=== PATIENT | male | born 1970 | race African-American/Black ===

== ENCOUNTER 2025-01-08 04:56 | Inpatient (IN) | payer SELFPAY ==
[~2025-01-08] VITALS: Ht 177.8 cm; Wt 74.8 kg
[2025-01-08] MEDS: SODIUM CHLORIDE 0.9% 1,000 ML IV ONE (05:54)
[2025-01-08] MEDS: ONDANSETRON HCL 4MG/2ML INJ IV STA (05:54)
[2025-01-08 06:27] LABS: CHLORIDE 90 mEq/L (98-107); POTASSIUM 4.6 mEq/L (3.5-5.1); SODIUM 123 mEq/L (136-145)
[2025-01-08 06:28] LABS: CALCIUM 8.3 mg/dL (8.7-10.4); CARBON DIOXIDE 16 mEq/L (21-32)
[2025-01-08 06:33] LABS: GLUCOSE 126 mg/dL (70-105); LACTIC ACID 3.3 mmol/L (0.4-2.0)
[2025-01-08 06:34] LABS: BASOPHILS % 0.3 % (0.0-2.0); DIFFERENTIAL COMMENT 0; EOSINOPHILS % 0.3 % (0.0-5.0); HEMATOCRIT. 41.2 % (42.0-52.0); HEMOGLOBIN. 14.1 g/dL (14.0-18.0); LYMPHOCYTES % 9.9 % (20.0-50.0); MEAN CORPUSCULAR HEMOGLOBIN 34.5 pg (28.0-32.0); MEAN CORPUSCULAR HGB CONC 34.1 g/dL (31.0-37.0); MEAN PLATELET VOLUME 10.3 fl (7.4-10.4); MONOCYTES % 5.4 % (2.0-8.0); NEUTROPHILS % 84.1 % (40.0-76.0); PLATELET 83 x1000/uL (130-400); RED BLOOD CELL COUNT 4.08 mill/uL (4.7-6.1); RED CELL DISTRIBUTION WIDTH 13.8 % (11.6-14.6); TROPONIN I HIGH SENSITIVITY 15 ng/L (3.0-53); WHITE BLOOD COUNT 13.8 x1000/uL (4.5-11.0)
[2025-01-08 06:35] LABS: ALANINE AMINOTRANSFERASE 57 IU/L (10-49); ALBUMIN 3.6 g/dL (3.2-4.8); ASPARTATE AMINOTRANSFERASE 260 IU/L (<34)
[2025-01-08 06:36] LABS: BILIRUBIN TOTAL 1.6 mg/dL (0.1-1.0); PROTEIN TOTAL 7.3 g/dL (6.0-8.3)
[2025-01-08 06:40] LABS: UREA NITROGEN BLOOD 71 mg/dL (9-23)
[2025-01-08 06:45] LABS: ETHANOL BLOOD < 10 mg/dL (<10)
[2025-01-08] MEDS ORDERED: AZITHROMYCIN 500MG/250ML 250 ML IV SCH (07:00)
[2025-01-08 07:13] LABS: CLARITY URINE TURBID (CLEAR); COLOR URINE DARK YELLOW (YELLOW); GLUCOSE URINE NEGATIVE (NEGATIVE); KETONES URINE TRACE (NEGATIVE); LEUKOCYTE ESTERASE URINE 3+ (NEGATIVE); NITRITE URINE NEGATIVE (NEGATIVE); OCCULT BLOOD URINE 3+ (NEGATIVE); PROTEIN URINE 3+ (NEGATIVE); SPECIFIC GRAVITY URINE 1.017 (1.005-1.030)
[2025-01-08 07:35] LABS: *AMPHETAMINES SCREEN URINE NEGATIVE (NEGATIVE)
[2025-01-08 07:36] LABS: *BARBITURATES SCREEN URINE NEGATIVE (NEGATIVE); *BENZODIAZEPINES SCREEN URINE NEGATIVE (NEGATIVE); *COCAINE SCREEN URINE NEGATIVE (NEGATIVE); CANNABINOID URINE SCREEN NEGATIVE (NEGATIVE); ECSTASY MDMA SCREEN URINE NEGATIVE (NEGATIVE); METHADONE URINE SCREEN NEGATIVE (NEGATIVE); OPIATES URINE SCREEN NEGATIVE (NEGATIVE); PHENCYCLIDINE URINE SCREEN NEGATIVE (NEGATIVE)
[2025-01-08] MEDS: PANTOPRAZOLE SODIUM 40 MG/VIAL IV ONE (07:40)
[2025-01-08 07:47] LABS: BACTERIA URINE 4+; RBC URINE TNTC /hpf (0-2); SQUAMOUS EPITHELIAL CELL URINE NONE SEEN /lpf (RARE/1+); WBC URINE TNTC /hpf (0-2)
[2025-01-08] MEDS: LORAZEPAM 2MG/ML INJ IV ONE (07:47)
[2025-01-08] MEDS: CEFTRIAXONE 1GM/50ML 50 ML IV ONE (07:49)
[2025-01-08 09:16] LABS: D-DIMER 9.32 mg/L FEU (<0.50); INR 1.1; PROTHROMBIN TIME 12.1 sec (9.6-11.0)
[2025-01-08 09:18] LABS: BG BASE EXCESS -8.5 mmol/L (-2.0-3.0); BG CARBOXYHEMOGLOBIN 0.6 % (0.5-1.5); BG DEOXYHEMOGLOBIN 5.5 % (0.0-5.0); BG FRACTION INSPIRED OXYGEN 44; BG HCO3 ACT 14.9 mmol/L (21.0-28.0); BG METHEMOGLOBIN 0.2 % (0.5-1.5); BG OXYGEN SATURATION 94.5 % (94.0-98.0); BG OXYHEMOGLOBIN 93.7 % (94.0-98.0); BG PCO2 25.8 mmHg (35.0-48.0); BG PH 7.378 (7.350-7.450); BG PO2 77.1 mmHg (83.0-108.0); BG SAMPLE SITE LEFT BRACHIAL; BG TOTAL HEMOGLOBIN 13.7 g/dL (13.5-17.5); BG VENT MODE NASAL CANNULA
[2025-01-08] MEDS: SODIUM BICARBONATE 8.4% 50MEQ/50ML SYR IV ONE (11:00)
[2025-01-08] MEDS: IOHEXOL-350 100 ML BOTTLE ONE (11:36)
[2025-01-08] MEDS: PANTOPRAZOLE 80 MG in SODIUM CHLORIDE 0.9% 100 ML IV SCH (11:58)
[2025-01-08] MEDS: AZITHROMYCIN 500MG/250ML 250 ML IV SCH (12:08)
[2025-01-08] MEDS ORDERED: ONDANSETRON HCL 4MG/2ML INJ IV PRN (12:15)
[2025-01-08] MEDS ORDERED: CLONIDINE 0.1MG TABLET PO PRN (12:15)
[2025-01-08] MEDS ORDERED: ACETAMINOPHEN 325MG TABLET PO PRN ×2 (12:15)
[2025-01-08] MEDS ORDERED: DOCUSATE SODIUM 100MG CAPSULE PO PRN (12:15)
[2025-01-08] MEDS ORDERED: IPRATROPIUM/ALBUTEROL 0.5-3(2.5)MG/3ML NEB HHN PRN (12:15)
[2025-01-08] MEDS: FUROSEMIDE 40MG/4ML VIAL IV SCH (13:40)
[2025-01-08] MEDS: DEXT 5%/0.45% NACL 1000ML 1,000 ML IV SCH (13:40)
[2025-01-08] MEDS: FOLIC ACID 1 MG, THIAMINE HCL 100 MG, MVI, ADULT NO.1 10 ML in SODIUM CHLORIDE 0.9% 1,0... IV ONE (14:57)
[2025-01-08 15:42] LABS: POTASSIUM 3.7 mEq/L (3.5-5.1)
[2025-01-08 15:44] LABS: CALCIUM 7.8 mg/dL (8.7-10.4)
[2025-01-08 15:46] LABS: CREATINE KINASE 528 IU/L (46-171)
[2025-01-08 15:48] LABS: CREATININE 4.6 mg/dL (0.6-1.3)
[2025-01-08 22:00] VITALS: BP 92/69; PULSE 122; RESP 53; TEMP 37.1; O2SAT 97
[2025-01-08] MEDS: METOPROLOL TARTRATE 5MG/5ML VIAL IV NR (22:09)
[2025-01-08] MEDS: DEXT 5%/LACTATED RINGERS 1,000 ML IV SCH (22:25)
[2025-01-08] MEDS: VANCOMYCIN 1.5GM/250ML 250 ML IV NR (23:24)
[2025-01-08 23:28] LABS: BG BASE EXCESS -8.4 mmol/L (-2.0-3.0); BG CARBOXYHEMOGLOBIN 0.4 % (0.5-1.5); BG DEOXYHEMOGLOBIN 6.5 % (0.0-5.0); BG FRACTION INSPIRED OXYGEN 44; BG HCO3 ACT 15.2 mmol/L (21.0-28.0); BG METHEMOGLOBIN 0.3 % (0.5-1.5); BG OXYGEN SATURATION 93.5 % (94.0-98.0); BG OXYHEMOGLOBIN 92.8 % (94.0-98.0); BG PCO2 26.6 mmHg (35.0-48.0); BG PH 7.374 (7.350-7.450); BG PO2 74.1 mmHg (83.0-108.0); BG SAMPLE SITE RIGHT BRACHIAL; BG VENT MODE NASAL CANNULA
[2025-01-09] VITALS (13 sets, daily range): BP systolic 82–142; BP diastolic 61–89; PULSE 80–127; RESP 33–66; TEMP 36.3–38.7; O2SAT 91–99
[2025-01-09 01:16] LABS: HEMATOCRIT 37.5 % (42.0-52.0)
[2025-01-09 01:25] LABS: CHLORIDE 97 mEq/L (98-107); POTASSIUM 4.1 mEq/L (3.5-5.1); SODIUM 130 mEq/L (136-145)
[2025-01-09 01:26] LABS: CALCIUM 7.6 mg/dL (8.7-10.4); CARBON DIOXIDE 19 mEq/L (21-32)
[2025-01-09 01:31] LABS: CREATININE 4.3 mg/dL (0.6-1.3); GLUCOSE 126 mg/dL (70-105); UREA NITROGEN BLOOD 80 mg/dL (9-23)
[2025-01-09 01:33] LABS: ALANINE AMINOTRANSFERASE 50 IU/L (10-49); ALBUMIN 3.1 g/dL (3.2-4.8); ASPARTATE AMINOTRANSFERASE 223 IU/L (<34); CREATINE KINASE 1058 IU/L (46-171)
[2025-01-09 01:34] LABS: BILIRUBIN TOTAL 1.7 mg/dL (0.1-1.0)
[2025-01-09] MEDS: ACETAMINOPHEN 1000MG/100ML 100 ML IV NR (04:43)
[2025-01-09 07:31] LABS: CHLORIDE 101 mEq/L (98-107); POTASSIUM 3.3 mEq/L (3.5-5.1); SODIUM 132 mEq/L (136-145)
[2025-01-09 07:32] LABS: CALCIUM 7.4 mg/dL (8.7-10.4); CARBON DIOXIDE 19 mEq/L (21-32)
[2025-01-09 07:37] LABS: CREATININE 4.3 mg/dL (0.6-1.3); GLUCOSE 182 mg/dL (70-105); TRIGLYCERIDE 640 mg/dL (0-150); UREA NITROGEN BLOOD 88 mg/dL (9-23)
[2025-01-09 07:38] LABS: HEMOGLOBIN. 11.2 g/dL (14.0-18.0); LDL CHOLESTEROL 19 mg/dL (5-100); MEAN CORPUSCULAR HGB CONC 33.8 g/dL (31.0-37.0); MEAN CORPUSCULAR VOLUME 97.8 fL (80.0-94.0); MEAN PLATELET VOLUME 8.7 fl (7.4-10.4); PLATELET 68 x1000/uL (130-400); RED BLOOD CELL COUNT 3.38 mill/uL (4.7-6.1); RED CELL DISTRIBUTION WIDTH 13.6 % (11.6-14.6); WHITE BLOOD COUNT 12.4 x1000/uL (4.5-11.0)
[2025-01-09 07:39] LABS: CHOLESTEROL 163 mg/dL (<200); HDL CHOLESTEROL < 20 mg/dL (>55)
[2025-01-09 07:41] LABS: T4 FREE 0.89 ng/dL (0.89-1.76); THYROID STIMULATING HORMONE 3.14 uIU/mL (0.55-4.78)
[2025-01-09] MEDS ORDERED: DEXTROSE 50% WATER 50ML SYRINGE IV PRN (08:00)
[2025-01-09] MEDS: BLOOD SUGAR DIAGNOSTIC STRIP TEST SCH (08:00)
[2025-01-09] MEDS ORDERED: CEFTRIAXONE 1GM/50ML 50 ML IV SCH (08:00)
[2025-01-09] MEDS: INSULIN LISPRO 100 UNITS/ML SUBCUT SCH (08:00)
[2025-01-09 08:03] LABS: DIFFERENTIAL COMMENT 1
[2025-01-09] MEDS: DEXT 5%/LACTATED RINGERS 1,000 ML IV SCH (08:15)
[2025-01-09] MEDS: PIPERACILLIN/TAZO 3.375G/50ML 50 ML IV SCH (09:20)
[2025-01-09] MEDS: PANTOPRAZOLE SODIUM 40 MG/VIAL IV SCH (09:21)
[2025-01-09] MEDS: [UNRECOGNIZED DRUG - REMARK] IV SCH (09:41)
[2025-01-09 09:47] LABS: T4 FREE 0.96 ng/dL (0.89-1.76)
[2025-01-09 09:55] LABS: LDL CHOLESTEROL 19 mg/dL (5-100); TRIGLYCERIDE 644 mg/dL (0-150)
[2025-01-09 09:57] LABS: CHOLESTEROL 162 mg/dL (<200); HDL CHOLESTEROL < 20 mg/dL (>55)
[2025-01-09 10:29] LABS: AMMONIA < 17 uMol/L (<32)
[2025-01-09] MEDS ORDERED: POTASSIUM CHLORIDE 20 MEQ in DEXT 5% WATER 100 ML IV SCH (11:15)
[2025-01-09 11:43] LABS: CREATININE URINE RANDOM 134.2 mg/dL
[2025-01-09] MEDS: METHYLPREDNISOLONE SOD SUCC 40MG/ML (ACT-O-VIAL) IV SCH (12:37)
[2025-01-09] MEDS: POTASSIUM CHLORIDE 20 MEQ in DEXT 5% WATER 100 ML IV SCH (12:38)
[2025-01-09 14:08] LABS: CREATINE KINASE MB FRACTION 4.1 ng/mL (0.5-3.6)
[2025-01-09 14:11] LABS: VITAMIN B12 SERUM 802 pg/mL (211-911)
[2025-01-09 14:12] LABS: FERRITIN > 1650 ng/mL (22-322)
[2025-01-09 14:24] LABS: HEPATITIS B SURFACE ANTIGEN NEGATIVE (Negative)
[2025-01-09 14:44] LABS: HEPATITIS A AB IGM NEGATIVE (Negative)
[2025-01-09 14:45] LABS: HEPATITIS B CORE AB IGM NEGATIVE (Negative); HEPATITIS C AB NON REACTIVE (Neg) (Negative)
[2025-01-09 14:46] LABS: PLATELET ESTIMATE DECREASED
[2025-01-09 23:49] LABS: IRON 19 ug/dL (65-175)
[2025-01-09 23:51] LABS: CREATINE KINASE 632 IU/L (46-171)
[2025-01-10] VITALS (13 sets, daily range): BP systolic 95–147; BP diastolic 74–91; PULSE 69–82; RESP 15–49; TEMP 36–36.3; O2SAT 90–100
[2025-01-10 00:10] LABS: TROPONIN I HIGH SENSITIVITY < 4 ng/L (3.0-53)
[2025-01-10 00:11] LABS: TOTAL IRON BINDING CAPACITY > 670 ug/dl (250-425)
[2025-01-10 08:10] LABS: CHLORIDE 104 mEq/L (98-107); POTASSIUM 3.5 mEq/L (3.5-5.1); SODIUM 137 mEq/L (136-145)
[2025-01-10 08:12] LABS: CARBON DIOXIDE 20 mEq/L (21-32)
[2025-01-10 08:13] LABS: CALCIUM 8.1 mg/dL (8.7-10.4)
[2025-01-10 08:17] LABS: CREATININE 3.3 mg/dL (0.6-1.3); GLUCOSE 265 mg/dL (70-105)
[2025-01-10 08:18] LABS: HEMATOCRIT. 35.3 % (42.0-52.0); HEMOGLOBIN. 11.7 g/dL (14.0-18.0); MEAN CORPUSCULAR HEMOGLOBIN 32.8 pg (28.0-32.0); MEAN CORPUSCULAR HGB CONC 33.2 g/dL (31.0-37.0); MEAN CORPUSCULAR VOLUME 98.8 fL (80.0-94.0); MEAN PLATELET VOLUME 9.2 fl (7.4-10.4); PLATELET 72 x1000/uL (130-400); RED BLOOD CELL COUNT 3.58 mill/uL (4.7-6.1); RED CELL DISTRIBUTION WIDTH 14.2 % (11.6-14.6); UREA NITROGEN BLOOD 82 mg/dL (9-23); WHITE BLOOD COUNT 12.8 x1000/uL (4.5-11.0)
[2025-01-10 08:19] LABS: ALANINE AMINOTRANSFERASE 49 IU/L (10-49); ALBUMIN 2.8 g/dL (3.2-4.8); ASPARTATE AMINOTRANSFERASE 185 IU/L (<34); BILIRUBIN DIRECT 0.8 mg/dL (<=3.0); CREATINE KINASE 512 IU/L (46-171); CREATINE KINASE MB FRACTION 2.5 ng/mL (0.5-3.6)
[2025-01-10 08:20] LABS: BILIRUBIN TOTAL 1.1 mg/dL (0.1-1.0); PROTEIN TOTAL 5.5 g/dL (6.0-8.3)
[2025-01-10] MEDS ORDERED: LORAZEPAM 2MG/ML INJ IV PRN (08:30)
[2025-01-10] MEDS ORDERED: LORAZEPAM 0.5MG TABLET PO PRN (08:30)
[2025-01-10 08:36] LABS: DIFFERENTIAL COMMENT 1
[2025-01-10 08:58] LABS: TROPONIN I HIGH SENSITIVITY < 4 ng/L (3.0-53)
[2025-01-10] MEDS: [UNRECOGNIZED DRUG - REMARK] IV SCH (09:57)
[2025-01-10] MEDS: VANCOMYCIN 1.25GM PMX (XELLIA) 250 ML IV NR (16:00)
[2025-01-10 16:48] LABS: PLATELET ESTIMATE DECREASED
[2025-01-10] MEDS: PIPERACILLIN/TAZO 3.375G/50ML 50 ML IV SCH (18:24)
[2025-01-10] MEDS: GUAIFENESIN 200MG/10ML SUGAR FREE UDC PO PRN (22:03)
[2025-01-10] MEDS: ACETYLCYSTEINE 200MG/ML 20% VIAL 4ML INH SCH (22:05)
[2025-01-10] MEDS: IPRATROPIUM/ALBUTEROL 0.5-3(2.5)MG/3ML NEB HHN SCH (22:05)
[2025-01-11] VITALS (16 sets, daily range): BP systolic 109–140; BP diastolic 72–84; PULSE 56–90; RESP 17–42; TEMP 36.3–36.9; O2SAT 94–100
[2025-01-11 06:56] LABS: HEMATOCRIT 34.9 % (42.0-52.0); HEMOGLOBIN 11.8 g/dL (14.0-18.0); MEAN CORPUSCULAR HEMOGLOBIN 33.7 pg (28.0-32.0); MEAN CORPUSCULAR HGB CONC 33.9 g/dL (31.0-37.0); MEAN CORPUSCULAR VOLUME 99.6 fL (80.0-94.0); PLATELET 87 x1000/uL (130-400); RED CELL DISTRIBUTION WIDTH 14.2 % (11.6-14.6); WHITE BLOOD COUNT 17.1 x1000/uL (4.5-11.0)
[2025-01-11 07:00] LABS: CHLORIDE 107 mEq/L (98-107); POTASSIUM 3.1 mEq/L (3.5-5.1); SODIUM 140 mEq/L (136-145)
[2025-01-11 07:03] LABS: CALCIUM 8.5 mg/dL (8.7-10.4); CARBON DIOXIDE 19 mEq/L (21-32)
[2025-01-11 07:08] LABS: CREATININE 2.5 mg/dL (0.6-1.3); GLUCOSE 207 mg/dL (70-105); UREA NITROGEN BLOOD 73 mg/dL (9-23)
[2025-01-11 07:10] LABS: ALANINE AMINOTRANSFERASE 79 IU/L (10-49); ALBUMIN 2.8 g/dL (3.2-4.8); ASPARTATE AMINOTRANSFERASE 173 IU/L (<34); BILIRUBIN TOTAL 1.1 mg/dL (0.1-1.0); PROTEIN TOTAL 5.6 g/dL (6.0-8.3)
[2025-01-11] MEDS: POTASSIUM CHLORIDE 20MEQ/PACKET PO NR (08:19)
[2025-01-11] MEDS: POTASSIUM CHLORIDE 20MEQ TABLET SR PO NR (08:19)
[2025-01-11] MEDS: CHLORDIAZEPOXIDE 5 MG CAPSULE PO SCH (22:00)
[2025-01-12] VITALS (12 sets, daily range): BP systolic 111–145; BP diastolic 68–93; PULSE 65–90; RESP 17–32; TEMP 36.6–36.8; O2SAT 92–98
[2025-01-12 06:58] LABS: HEMATOCRIT. 34.5 % (42.0-52.0); HEMOGLOBIN. 11.8 g/dL (14.0-18.0); MEAN CORPUSCULAR HEMOGLOBIN 33.2 pg (28.0-32.0); MEAN CORPUSCULAR HGB CONC 34.1 g/dL (31.0-37.0); MEAN CORPUSCULAR VOLUME 97.4 fL (80.0-94.0); MEAN PLATELET VOLUME 9.5 fl (7.4-10.4); PLATELET 82 x1000/uL (130-400); RED BLOOD CELL COUNT 3.55 mill/uL (4.7-6.1); RED CELL DISTRIBUTION WIDTH 14.1 % (11.6-14.6); WHITE BLOOD COUNT 15.6 x1000/uL (4.5-11.0)
[2025-01-12 07:11] LABS: CHLORIDE 109 mEq/L (98-107); POTASSIUM 2.9 mEq/L (3.5-5.1); SODIUM 142 mEq/L (136-145)
[2025-01-12 07:12] LABS: CALCIUM 8.4 mg/dL (8.7-10.4); CARBON DIOXIDE 20 mEq/L (21-32)
[2025-01-12 07:17] LABS: CREATININE 2.2 mg/dL (0.6-1.3); GLUCOSE 192 mg/dL (70-105)
[2025-01-12 07:18] LABS: UREA NITROGEN BLOOD 57 mg/dL (9-23)
[2025-01-12 07:20] LABS: PHOSPHORUS 2.3 mg/dL (2.5-4.9)
[2025-01-12 07:25] LABS: DIFFERENTIAL COMMENT 1
[2025-01-12] MEDS: METHYLPREDNISOLONE SOD SUCC 40MG/ML (ACT-O-VIAL) IV SCH (09:38)
[2025-01-12] MEDS: POTASSIUM CHLORIDE 20MEQ TABLET SR PO NR (09:39)
[2025-01-12] MEDS: VANCOMYCIN 1GM/200ML PMX (BAXTER) IV SCH (12:38)
[2025-01-12] MEDS: POTASSIUM PHOSPHATE 20 MMOL in DEXT 5% WATER 243.3333 ML IV NR (12:38)
[2025-01-12 18:14] LABS: PLATELET ESTIMATE DECREASED
[2025-01-13] VITALS (9 sets, daily range): BP systolic 125–134; BP diastolic 74–84; PULSE 71–92; RESP 15–41; TEMP 36.6–36.8; O2SAT 95–98
[2025-01-13 07:30] LABS: HEMATOCRIT 31.6 % (42.0-52.0); HEMOGLOBIN 10.7 g/dL (14.0-18.0); MEAN CORPUSCULAR HEMOGLOBIN 33.1 pg (28.0-32.0); MEAN CORPUSCULAR HGB CONC 33.9 g/dL (31.0-37.0); MEAN CORPUSCULAR VOLUME 97.6 fL (80.0-94.0); PLATELET 79 x1000/uL (130-400); RED BLOOD CELL COUNT 3.24 mill/uL (4.7-6.1); RED CELL DISTRIBUTION WIDTH 13.9 % (11.6-14.6); WHITE BLOOD COUNT 16.2 x1000/uL (4.5-11.0)
[2025-01-13 07:57] LABS: CARBON DIOXIDE 22 mEq/L (21-32); CHLORIDE 112 mEq/L (98-107); SODIUM 145 mEq/L (136-145)
[2025-01-13 07:58] LABS: CALCIUM 8.2 mg/dL (8.7-10.4)
[2025-01-13 08:03] LABS: CREATININE 1.7 mg/dL (0.6-1.3); GLUCOSE 182 mg/dL (70-105); UREA NITROGEN BLOOD 39 mg/dL (9-23)
[2025-01-13 08:05] LABS: PHOSPHORUS 2.1 mg/dL (2.5-4.9)
[2025-01-13] MEDS: MAGNESIUM 2 G PREMIX 50 ML IV ONE (11:02)
[2025-01-13] MEDS: KCL 20MEQ/100ML PREMIX 100 ML IV SCH (11:45)
[2025-01-13] MEDS ORDERED: PROT40 PO (12:24)
[2025-01-13] MEDS: POTASSIUM PHOSPHATE 20 MMOL in DEXT 5% WATER 243.3333 ML IV ONE (14:03)
== END 2025-01-13 17:50 | disposition home or self-care (01) | DRG 720 ==
LOC: ER 04:56 → EDBEDREQTM 10:50 → EDBEDREQ 10:50 → EDBEDREQSVC 10:50 → 5EST 20:49
PROVIDERS: ADMIT Hospitalist; ATTEND Hospitalist
DX: A41.51 Sepsis due to Escherichia coli [E. coli] (principal); D65 Disseminated intravascular coagulation [defibrination syndrome]; J96.01 Acute respiratory failure with hypoxia; N17.0 Acute kidney failure with tubular necrosis; J69.0 Pneumonitis due to inhalation of food and vomit; G93.40 Encephalopathy, unspecified; E87.29 Other acidosis; R16.0 Hepatomegaly, not elsewhere classified; E44.0 Moderate protein-calorie malnutrition; R65.20 Severe sepsis without septic shock; E83.39 Other disorders of phosphorus metabolism; M62.82 Rhabdomyolysis; E87.1 Hypo-osmolality and hyponatremia; E83.51 Hypocalcemia; E78.5 Hyperlipidemia, unspecified; E11.65 Type 2 diabetes mellitus with hyperglycemia; D53.9 Nutritional anemia, unspecified; E87.6 Hypokalemia; F10.20 Alcohol dependence, uncomplicated; N18.9 Chronic kidney disease, unspecified; N39.0 Urinary tract infection, site not specified; D50.9 Iron deficiency anemia, unspecified; E11.22 Type 2 diabetes mellitus with diabetic chronic kidney disease; E78.1 Pure hyperglyceridemia; I13.10 Hypertensive heart and chronic kidney disease without heart failure, with stage 1 through stage 4 chronic kidney disease, or unspecified chronic kidney disease; I48.0 Paroxysmal atrial fibrillation; E80.6 Other disorders of bilirubin metabolism; K76.0 Fatty (change of) liver, not elsewhere classified; K59.00 Constipation, unspecified; R79.89 Other specified abnormal findings of blood chemistry; Z68.23 Body mass index [BMI] 23.0-23.9, adult; Z79.899 Other long term (current) drug therapy
CPT/HCPCS: 36415; 36600; 71045; 71275; 74174; 74176; 76700; 80048; 80053; 80061; 80076; 80202; 80305; 80320; 81003; 82105; 82140; 82270; 82306; 82375; 82550; 82553; 82570; 82607; 82728; 82746; 82805; 82962; 83036; 83540; 83550; 83605; 83735; 83880; 84100; 84145; 84300; 84439; 84443; 84481; 84484; 85014; 85018; 85025; 85027; 85044; 85379; 85651; 86705; 86709; 86850; 86900; 87077; 87186; 87340; 93005; 93306; 93970; 94070; 94640; 94664; 97162; 97166; 99291; J0456; J0696; J1815; J1940; J2060; J2405; J2470; J2543; J2920; J3370; J3411; J3475; J3480; J3490; J7030; J7050; J7060; J7121; J7608; Q9967; G0480; J0131